=== PATIENT | female | born 1980 | race Caucasian/White ===

== ENCOUNTER 2016-05-07 08:35 | Emergency (ER) | payer OTHER ==
[2016-05-07 09:45] LABS: HEMATOCRIT 42.8 % (37.0-47.0); HEMOGLOBIN 14.8 g/dL (12.0-16.0); MCH 30.8 PG (27-31); MCHC 34.6 g/dL (33-37); MCV 89.2 FL (81-99); RBC 4.8 XMIL (4.2-5.4)
[2016-05-07 09:46] LABS: MPV 9.2 FL (7.4-10.4)
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
[2016-05-07 10:13] LABS: AGAP 12; ALBUMIN 4.1 g/dL (3.5-5.0); ALKALINE PHOSPHATASE 76 U/L (32-104); BUN 23 mg/dL (8-22); CALCIUM 8.9 mg/dL (8.8-10.2); CHLORIDE 101 mmol/L (98-107); COSMO 271; GOT 25 U/L (10-30); GPT 18 U/L (10-36); POTASSIUM 4.1 mmol/L (3.5-5.1); SODIUM 134 mmol/L (136-145); TCO2 21 mmol/L (25-35); TOTAL PROTEIN 7.1 g/dL (6.3-8.3)
[2016-05-07] MEDS ORDERED: TYLENOL PO ONE (10:23)
[2016-05-07] MEDS ORDERED: ROBAXIN PO ONE (10:23)
--- NOTE | 2016-05-07 11:15 | Diag Imaging Result Document ---
PROCEDURE NAME: KNEE 3 VIEWS RIGHT - 05/07/2016 RIGHT KNEE THREE VIEWS: FINDINGS: No fracture. No dislocation. IMPRESSION: No acute bony injury.
--- NOTE | 2016-05-07 11:15 | Diag Imaging Result Document ---
PROCEDURE NAME: KNEE 3 VIEWS LEFT - 05/07/2016 LEFT KNEE THREE VIEWS: FINDINGS: No fracture. No dislocation. IMPRESSION: No acute bony injury.
--- NOTE | 2016-05-07 11:16 | Diag Imaging Result Document ---
PROCEDURE NAME: LUMBAR SPINE 2-VIEWS - 05/07/2016 LUMBAR SPINE AP AND LATERAL, THREE VIEWS: FINDINGS: There is good alignment to the lumbar spine. No compressed vertebra. No other fracture. IMPRESSION: No acute bony injury.
[2016-05-07] MEDS ORDERED: FIORICET PO ONE (11:17)
--- NOTE | 2016-05-07 11:17 | Diag Imaging Result Document ---
PROCEDURE NAME: CHEST-2 VIEWS - 05/07/2016 CHEST X-RAY 2 VIEWS, 05/07/2016: COMPARISON: None. FINDINGS: The lungs are normally expanded and clear. Heart size and mediastinal contours are normal. No pneumothorax or pleural effusion. IMPRESSION: Negative exam.
--- NOTE | 2016-05-07 11:20 | Diag Imaging Result Document ---
PROCEDURE NAME: PELVIS - 05/07/2016 PELVIS SINGLE VIEW: FINDINGS: No fracture. No dislocation. There is a contraceptive device overlying the sacrum. IMPRESSION: No acute bony injury.
--- NOTE | 2016-05-07 11:22 | Diag Imaging Result Document ---
PROCEDURE NAME: HEAD/C-SPINE W/O CONTRAST - 05/07/2016 CT HEAD AND C-SPINE WITHOUT CONTRAST: COMPARISON: None available. FINDINGS: HEAD: There is no discrete intracranial mass, mass effect, or intracranial hemorrhage. There is no evidence of hydrocephalus. There is no evidence of acute infarct. There is a prominent subgaleal soft-tissue hematoma involving the left frontal scalp measuring up to 10 cm in length and up to 1.3 cm in thickness. The calvaria is grossly intact. C-SPINE: There is no evidence of fracture, subluxation, or significant intrinsic osseous lesion. The intervertebral disk space heights and the vertebral body heights are well maintained. The central canal appears to be patent. Surrounding soft tissues are grossly unremarkable. IMPRESSION: 1. Large left frontal subgaleal scalp hematoma. 2. No evidence of skull fracture. 3. No evidence of acute intracranial pathology. 4. No evidence of fracture or other definite acute C-spine injury.
[2016-05-07 11:56] VITALS: BP 130/88
== END 2016-05-07 11:55 | disposition home or self-care (01) ==
LOC: P.ED 08:35
DX: M25.552 Pain in left hip (principal); M25.562 Pain in left knee; M25.561 Pain in right knee; S00.03XA Contusion of scalp, initial encounter; I10 Essential (primary) hypertension; R51 Headache; F17.210 Nicotine dependence, cigarettes, uncomplicated; V49.40XA Driver injured in collision with unspecified motor vehicles in traffic accident, initial encounter
CPT/HCPCS: 36415; 70450; 71020; 72100; 72125; 72170; 80053; 85027